=== PATIENT | male | born 1960 | race Caucasian/White ===

== ENCOUNTER 2018-03-31 16:32 | Emergency (ER) | payer OTHER ==
[~2018-03-31] VITALS: Ht 193 cm; Wt 117.9 kg
[2018-03-31] MEDS ORDERED: METHYLPREDNISOLONE SOD SUCC 125 MG/2ML VIAL IM ONE (17:00)
== END 2018-03-31 17:03 | disposition home or self-care (01) ==
LOC: FSED 16:32
DX: H92.03 Otalgia, bilateral (principal); J32.9 Chronic sinusitis, unspecified; J30.1 Allergic rhinitis due to pollen
CPT/HCPCS: 99283; J2930